=== PATIENT | female | born 1965 ===

== ENCOUNTER 2019-03-12 06:00 | Day surgery (SDC) | payer OTHER ==
[~2019-03-12 06:00] MED LIST: CARDIZEM CD180 MG PO; SYNTHROID75 MCG PO
[2019-03-12] MEDS ORDERED: IBU600 MG PO (08:44)
== END 2019-03-12 13:20 | disposition home or self-care (01) ==
LOC: CIR.AMB 06:00 → ADM 11:00 → CIR.AMB 13:20
DX: D26.1 Other benign neoplasm of corpus uteri (principal)